=== PATIENT | male | born 1990 | race Caucasian/White ===

== ENCOUNTER 2020-11-09 15:24 | Emergency (ER) | payer OTHER, SELFPAY ==
[2020-11-09 15:42] VITALS: BP 142/76; PULSE 107; RESP 16; TEMP 37; O2SAT 99
--- NOTE | 2020-11-09 16:08 | ED.EAR ---
HPI - Ear Problem General Chief complaint: Ear Stated complaint: Left Side ear pain Source: patient and RN notes reviewed Limitations: no limitations History of Present Illness HPI Narrative: The obese patient, a non-smoker/nondrinker presents with left ear and face pain. Patient states he has 1/2-week of 2 separate pain complaints: He complains of left gingival jaw pain that is mild, worse with palpation better at rest. He also has some palpable, preauricular ear pain . No fever, ear discharge, hoarseness, trismus, tinnitus Related Data Home Medications Medication Instructions Recorded Confirmed diazepam 1 mg PO BID 11/09/20 11/09/20 Allergies Allergy/AdvReac Type Severity Reaction Status Date / Time No Known Allergies Allergy Unknown Verified 11/09/20 15:38 Review of Systems Review of Systems: Narrative: General/Constitutional: No weight loss,fever Eyes: N0: Redness,discharge Ears/Nose/Throat: No: Epistaxis,ear discharge Respiratory: Denies: Hemoptysis Gastrointestinal: No Vomiting, Bleeding-rectal Skin: No Lumps, eruption Neurologic: No Focal Weakness,Sz Hematologic: Denies: Petechiae/Purpura Psychiatric: No: Suicida ideationl All Other Systems: Reviewed and Negative PMFSH Family History Family History (Updated 08/28/18 @ 14:32 by DOCTOR UNKNOWN) Mother Family history of chronic obstructive pulmonary disease Social History Social History Gender identity (if verbalized by the patient): Male Comments At time of signature, agree with nursing past medical, surgical, social and family history. There is no relevant family history pertinent to the presenting complaint Exam Narrative: Exam Narrative: General Appearance: Well appearing, Well nourished EYE: PERRLA, Conjunctiva clear Ears: Auditory canal normal & TM obscured by wax Nose: No rhinorrhea, Mucousal erythema Mouth/Throat: MM moist, Uvula midline, no pharyngeal erythema Neck: Supple, No adenopathy Respiratory: No respiratory distress, Breath sounds equal, Clear to auscultation Cardiovascular: RRR, No JVD Musculoskeletal: Non tender, Normal strength Skin: Warm, Dry Neurological: A&O x3, CN II-XII intact Psychiatric: Normal mood, Normal affect Course Vital Signs Vital signs: Vital Signs Temperature 98.6 F 11/09/20 15:42 Pulse Rate 107 H 11/09/20 15:42 Respiratory Rate 16 11/09/20 15:42 Blood Pressure 142/76 H 11/09/20 15:42 Pulse Oximetry 99 11/09/20 15:42 Temperature 98.6 F 11/09/20 15:42 Pulse Rate 107 H 11/09/20 15:42 Respiratory Rate 16 11/09/20 15:42 Blood Pressure 142/76 H 11/09/20 15:42 Pulse Oximetry 99 11/09/20 15:42 Medical Decision Making Vital Signs Vital Signs: Vital Signs Temperature 98.6 F 11/09/20 15:42 Pulse Rate 107 H 11/09/20 15:42 Respiratory Rate 16 11/09/20 15:42 Blood Pressure 142/76 H 11/09/20 15:42 Pulse Oximetry 99 11/09/20 15:42 Temperature 98.6 F 11/09/20 15:42 Pulse Rate 107 H 11/09/20 15:42 Respiratory Rate 16 11/09/20 15:42 Blood Pressure 142/76 H 11/09/20 15:42 Pulse Oximetry 99 11/09/20 15:42 Discharge Plan Discharge Clinical Impression: Tooth ache TMJ arthralgia Qualifiers: Laterality: left Qualified Code(s): M26.622 - Arthralgia of left temporomandibular joint Patient Disposition: Home, Self-Care Condition: Stable Instructions: Antibiotic Form, Temporomandibular Disorder (ED), Toothache (ED) Additional Instructions: You may also use OTC preparations for wax buildup Prescriptions: New amoxicillin 875 mg tablet 875 mg PO Q12H Qty: 20 RF: 0 tramadol 50 mg tablet 50 mg PO Q6H PRN (Reason: pain) Qty: 15 RF: 1 No Action diazepam 5 mg tablet 1 mg PO BID RF: 0 Follow-up/Referrals: Jonah Mccauley MD [Primary Care Provider] -
== END 2020-11-09 16:16 | disposition home or self-care (01) ==
LOC: EXPCOLL 15:27
PROVIDERS: Emergency Provider Emergency Medicine; PCP Emergency Medicine
DX: K08.89 Other specified disorders of teeth and supporting structures (principal); M26.622 Arthralgia of left temporomandibular joint; F41.9 Anxiety disorder, unspecified
CPT/HCPCS: 99213; G0463

== ENCOUNTER 2021-03-16 18:40 | Emergency (ER) | payer OTHER, SELFPAY ==
[2021-03-16 18:49] VITALS: BP 128/85; PULSE 107; RESP 20; TEMP 36.5; O2SAT 97
--- NOTE | 2021-03-16 19:09 | ED.EXTPRO ---
HPI - Extremity Problem General Chief complaint: Extremity Problem,Nontraumatic Stated complaint: Calf Pain Time Seen by Provider: 03/16/21 18:59 Source: patient and RN notes reviewed Mode of arrival: ambulatory Limitations: no limitations History of Present Illness HPI Narrative: 30-year-old male presents with concern for left calf spasming, charley horse feeling. Reports symptoms started intermittently 2-1/2 weeks ago. He denies injury or trauma. He denies redness, swelling, warmth. He denies distal pain, loss of sensation, strength or range of motion. He reports pain radiates down towards the ankle and the thigh. He denies intervention. He denies shortness of breath or palpitations. MD Complaint: extremity pain Related Data Home Medications Medication Instructions Recorded Confirmed sucralfate 1 g PO DIRECTED 03/16/21 03/16/21 Allergies Allergy/AdvReac Type Severity Reaction Status Date / Time No Known Allergies Allergy Unknown Verified 03/16/21 18:42 Review of Systems Review of Systems: CONSTITUTIONAL: Denies malaise, chills, sweats, or fever. CARDIOVASCULAR: Denies chest pain, palpitations, or edema. RESPIRATORY: Denies cough or dyspnea. SKIN: Denies lacerations, abrasions, redness, warmth, swelling MUSCULOSKELETAL: Reports left medial calf pain that radiates towards ankle and up towards the thigh, worse with palpitation NEUROLOGIC: Denies numbness, weakness All systems reviewed & are unremarkable except as noted in HPI and below PMFSH Family History Family History (Updated 08/28/18 @ 14:32 by DOCTOR UNKNOWN) Mother Family history of chronic obstructive pulmonary disease Social History Social History Gender identity (if verbalized by the patient): Male Comments At time of signature, agree with nursing past medical, surgical, social and family history. There is no relevant family history pertinent to the presenting complaint Exam Narrative: GENERAL: Well-appearing, well-nourished, and in no acute distress. HEAD: Normocephalic, atraumatic. EYES: PERRLA, conjunctivae clear NECK: Supple. CHEST: Speaks in full sentences. No respiratory distress. HEART: Regular rate and rhythm. Normal and equal peripheral pulses. EXTREMITIES: Left lower leg has normal strength and sensation, normal range of motion. No edema erythema, or ecchymosis. 5/5 strength with knee and ankle flexion and extension. Normal sensation with sensitivity to light touch and pain. No point tenderness. No open wounds, no skin tenting, no devitalized tissue or atrophy, no trophic changes, no obvious deformity, alignment normal, nearby joints and structures intact. Distal pulses palpable and equal bilaterally, skin warm, dry, pink. Capillary refill less than 3 seconds. SKIN: Warm, dry, no rash. NEURO: Alert and oriented x3. PSYCH: Normal mood and affect Course Course Emergency Course: Patient is aware of diagnosis, understands and agrees to treatment plan. Anticipatory guidance given. Patient agrees to follow-up as directed and is aware of reasons to seek care at the emergency department. Portions of this record may have been created with voice recognition software Vital Signs Vital signs: Vital Signs Temperature 97.7 F 03/16/21 18:49 Pulse Rate 107 H 03/16/21 18:49 Respiratory Rate 20 03/16/21 18:49 Blood Pressure 128/85 03/16/21 18:49 Pulse Oximetry 97 03/16/21 18:49 Temperature 97.7 F 03/16/21 18:49 Pulse Rate 107 H 03/16/21 18:49 Respiratory Rate 20 03/16/21 18:49 Blood Pressure 128/85 03/16/21 18:49 Pulse Oximetry 97 03/16/21 18:49 Reviewed. MDM - Extremity (Nontraumatic) MDM Narrative Medical decision making narrative: Patients pain is consistent with musculoskeletal etiology. No signs of neurological or vascular compromise on exam. Compartments and tissues are soft without signs of compartment syndrome. Pain is felt appropriate for further evaluation on an outpatient basis. Ruth
== END 2021-03-16 19:14 | disposition home or self-care (01) ==
PROVIDERS: Emergency Provider Nurse Practitioner; PCP Emergency Medicine
DX: M62.838 Other muscle spasm (principal); I10 Essential (primary) hypertension; K21.9 Gastro-esophageal reflux disease without esophagitis; H81.09 Meniere's disease, unspecified ear
CPT/HCPCS: 99213; G0463

== ENCOUNTER 2021-03-29 21:13 | Emergency (ER) | payer OTHER, SELFPAY ==
--- NOTE | 2021-03-29 21:31 | PC.NURSE ---
pt called into triage bay, no response. will try again in a few minutes.
--- NOTE | 2021-03-29 22:04 | PC.NURSE ---
called pt into triage bay, no response.
== END 2021-03-29 22:04 | disposition left against medical advice (07) ==
LOC: ANHED 22:14
PROVIDERS: PCP Emergency Medicine
DX: Z53.21 Procedure and treatment not carried out due to patient leaving prior to being seen by health care provider (principal)
CPT/HCPCS: 99199

== ENCOUNTER 2021-03-31 16:13 | Emergency (ER) | payer OTHER, SELFPAY ==
--- NOTE | ~2021-03-31 | XR_ITS ---
EXAMINATION: XR chest 2V DATE: 03/31/2021 17:18 INDICATION: Mucous in chest. Post COVID-19 pneumonia. TECHNIQUE: Frontal and lateral views of the chest were obtained. COMPARISON: CT abdomen and pelvis 11/26/2013 FINDINGS: The chest demonstrates clear lungs without pneumonia, pleural effusion, or pneumothorax. Th e heart size is normal. IMPRESSION: 1. No acute cardiopulmonary disease. Reviewed, dictated and finalized at location A.
[2021-03-31 16:24] VITALS: BP 136/83; PULSE 114; RESP 16; TEMP 36.3; O2SAT 100
--- NOTE | 2021-03-31 17:35 | ED.URI ---
HPI - URI/Sore Throat General Chief Complaint: Upper Respiratory Infection Stated Complaint: Shortness of Breath Time Seen by Provider: 03/31/21 17:20 Source: patient Mode of arrival: ambulatory Limitations: no limitations History of Present Illness HPI Narrative: Mike Saravia is a 30 yo male who was seen here on the , went for Covid testing on the and was found to be positive. He has been in quarantine since then but called his doctor today complaining of feeling like he still has glass in his throat and difficulty breathing. He has been intermittently diaphoretic he is afebrile and so his doctor sent him here for a Z-Ben Related Data Allergies Allergy/AdvReac Type Severity Reaction Status Date / Time No Known Allergies Allergy Unknown Verified 03/16/21 18:42 Review of Systems Review of Systems: CONSTITUTIONAL: Denies fever, chills, sweats. Has intermittent diaphoresis EYES: Denies visual changes, redness, discharge. ENT: Denies rhinorrhea, has congestion, has sore throat, otalgia. CARDIOVASCULAR: Denies chest pain, palpitations, edema. RESPIRATORY: Some dyspnea, wheezing, cough GASTROINTESTINAL: Denies abdominal pain, nausea, vomiting, diarrhea. GENITOURINARY: Denies dysuria, hematuria, abnormal discharge SKIN: Denies rash or itching. NEUROLOGIC: Denies numbness, or focal weakness. PSYCHIATRIC: Denies anxiety or depression. PMFSH Past Medical History Medical History COVID Family History Family History Mother Family history of chronic obstructive pulmonary disease Social History Social History (Updated 03/31/21 @ 17:45 by Alma Huber CNP) Smoking status: Never smoker Alcohol intake: current Gender identity (if verbalized by the patient): Male Comments At time of signature, I agree with nursing past medical, surgical, social and family history. There is no relevant family history pertinent to the presenting complaint. Exam Narrative: GENERAL: This is a well-nourished, well-developed patient, in mild distress. HEAD: normocephalic, atraumatic. EYES: Sclera clear/white. Vision is grossly intact. EARS: External ears normal, auditory canals clear and without drainage, TMs normal without perforation. Hearing grossly intact. NOSE: External nose normal without nasal discharge, nares without redness, no rhinorrhea. THROAT: Mucous membranes moist, posterior pharynx erythema NECK: Neck supple, mild-tender CARDIOVASCULAR: Tachycardic rate and rhythm without murmurs, gallops, or rubs. RESPIRATORY: Clear to auscultation. Breath sounds equal bilaterally. No wheezes, rales, or rhonchi. GASTROINTESTINAL: Abdomen soft, non-tender, SKIN: warm, intact with no suspicious lesions or rash, good texture and turgor. NEURO: awake, alert, and oriented to person, place and time. There were no obvious focal neurologic abnormalities. Steady gait EXTREMITIES: Normal range of motion. BACK: Nontender without deformity Course Course Emergency Course: Patient is here with diaphoresis and reported short of breath. Had Covid and has been quarantine but is now having some difficulty with breathing and so we will start on prednisone and Zithromax Chest x-ray is negative for cardiopulmonary disease Vital Signs Vital signs: Vital Signs Temperature 97.3 F L 03/31/21 16:24 Pulse Rate 114 H 03/31/21 16:24 Respiratory Rate 16 03/31/21 16:24 Blood Pressure 136/83 03/31/21 16:24 Pulse Oximetry 100 03/31/21 16:24 Temperature 97.3 F L 03/31/21 16:24 Pulse Rate 114 H 03/31/21 16:24 Respiratory Rate 16 03/31/21 16:24 Blood Pressure 136/83 03/31/21 16:24 Pulse Oximetry 100 03/31/21 16:24 MDM - URI/Sore Throat Differential Diagnosis Differential diagnosis: Likely upper respiratory infection, otitis media, sinusitis and pharyngitis Critical Care Time Critical Care Time Critical
== END 2021-03-31 17:53 | disposition home or self-care (01) ==
PROVIDERS: Emergency Provider Nurse Practitioner; PCP Emergency Medicine
DX: U07.1 COVID-19 (principal); R06.00 Dyspnea, unspecified
CPT/HCPCS: 71046; 99213; G0463

== ENCOUNTER 2021-08-02 08:08 | Emergency (ER) | payer OTHER, SELFPAY ==
[2021-08-02 08:15] VITALS: BP 123/93; PULSE 100; RESP 16; TEMP 36.9; O2SAT 99
--- NOTE | 2021-08-02 08:58 | ED.SKABFB ---
HPI - Skin/Abscess/Foreign Bdy General Chief complaint: Skin/Abscess/Foreign Body Stated complaint: rash Time Seen by Provider: 08/02/21 08:49 Source: patient and RN notes reviewed Mode of arrival: ambulatory Limitations: no limitations History of Present Illness HPI narrative: Patient presents today with a 1 week history of rash or insect bites to his bilateral feet, lower legs, and left shoulder. He is unsure of the cause. No new detergents, soaps, plant or animal exposures, medications, foods. He has not been outside much recently. He has been using hydrocortisone, calamine without relief. MD complaint: rash and insect bite/sting Related Data Home Medications Medication Instructions Recorded Confirmed pantoprazole 40 mg PO DAILY 08/02/21 08/02/21 sucralfate 1 g PO DAILY 08/02/21 08/02/21 Allergies Allergy/AdvReac Type Severity Reaction Status Date / Time No Known Allergies Allergy Unknown Verified 08/02/21 08:37 Review of Systems Review of Systems: CONSTITUTIONAL: Denies body aches, fever, chills, or sweats. EYES: Denies visual changes, redness, or discharge. ENT: Denies rhinorrhea, congestion, sore throat, or otalgia. CARDIOVASCULAR: Denies chest pain, palpitations, or edema. RESPIRATORY: Denies cough or dyspnea. GASTROINTESTINAL: Denies abdominal pain, nausea, vomiting, or diarrhea. GENITOURINARY: Denies dysuria or hematuria. SKIN: Denies wounds.+ Rash/insect bite MUSCULOSKELETAL: Denies back pain, joint pain, or myalgia. NEUROLOGIC: Denies headache, numbness, tingling, or weakness. PSYCH: Denies depression or anxiety. PMFSH Past Medical History Medical History COVID Family History Family History Mother Family history of chronic obstructive pulmonary disease Social History Social History Smoking status: Never smoker Alcohol intake: current Gender identity (if verbalized by the patient): Male Comments At time of signature, I have reviewed and agree with nursing past medical, surgical, social and family history unless otherwise noted. Please see nursing chart for further information. There is no relevant family history pertinent to the presenting complaint Exam Narrative: GENERAL: Well-appearing, well-nourished, and in no acute distress. HEAD: Normocephalic, atraumatic. EYES: EOMI. No redness or drainage. Conjunctivae normal. ENT: Mucous membranes pink and moist. NECK: Normal AROM. CHEST: No respiratory distress. EXTREMITIES: Normal range of motion. No edema. SKIN: Warm, dry. Capillary refill normal. Normal skin turgor. Multiple erythematous papules to the posterior left shoulder. Faintly pink papules to the posterior right lower leg and bilateral feet, all consistent with insect bites. NEURO: No focal deficits. Alert and oriented x3. Gait steady. PSYCH: Normal affect. No signs of depression or anxiety. Course Vital Signs Vital signs: Vital Signs Temperature 98.4 F 08/02/21 08:15 Pulse Rate 100 08/02/21 08:15 Respiratory Rate 16 08/02/21 08:15 Blood Pressure 123/93 H 08/02/21 08:15 Pulse Oximetry 99 08/02/21 08:15 Temperature 98.4 F 08/02/21 08:15 Pulse Rate 100 08/02/21 08:15 Respiratory Rate 16 08/02/21 08:15 Blood Pressure 123/93 H 08/02/21 08:15 Pulse Oximetry 99 08/02/21 08:15 Reviewed. Pt has been instructed to follow up with his PCP regarding his elevated blood pressure today. MDM - Skin/Abscess/Foreign Bdy Differential Diagnosis Differential diagnosis: Likely urticaria, insect bites, contact dermatitis and other (Scabies, bedbugs, mites) Critical Care Time Critical Care Time Critical Care Time: No Discharge Plan Discharge Clinical Impression: Insect bites Qualifiers: Encounter type: initial encounter Site of insect bite: unspecified site
== END 2021-08-02 09:07 | disposition home or self-care (01) ==
PROVIDERS: Emergency Provider Nurse Practitioner; PCP Emergency Medicine
DX: S40.262A Insect bite (nonvenomous) of left shoulder, initial encounter (principal); S80.861A Insect bite (nonvenomous), right lower leg, initial encounter; S90.862A Insect bite (nonvenomous), left foot, initial encounter; S90.861A Insect bite (nonvenomous), right foot, initial encounter; W57.XXXA Bitten or stung by nonvenomous insect and other nonvenomous arthropods, initial encounter; Z86.16 Personal history of COVID-19
CPT/HCPCS: 99213; G0463

== ENCOUNTER 2022-01-02 21:28 | Emergency (ER) | payer OTHER, SELFPAY ==
[2022-01-02 21:30] VITALS: BP 132/95; PULSE 112; RESP 18; TEMP 36.8; O2SAT 99
[2022-01-02 21:51] VITALS: BP 102/88; PULSE 122; RESP 22; O2SAT 99
[2022-01-02] MEDS: diphenhydrAMINE HCl INJ 50 MG/ML VIAL 25 MG IV PUSH (23:46)
[2022-01-02] MEDS: KETOROLAC 30 MG/ML VIAL (*BKC) IV PUSH (23:47)
[2022-01-02] MEDS: METOCLOPRAMIDE HCL INJ 10 MG/2 ML VIAL IV PUSH (23:47)
[2022-01-02] MEDS: SODIUM CHLORIDE 0.9% IV 1,000 ML 999 ML IV CONT (23:53)
--- NOTE | 2022-01-03 00:26 | ED.GENADULT ---
HPI - General Adult General Chief complaint: Eye Problems Stated complaint: light sensitivity with headache Time Seen by Provider: 01/02/22 22:49 History of Present Illness HPI narrative: Patient is a 31-year-old male who presents ER with light sensitivity. Ongoing over the last month. Reports he was seen by an post graduate intern who told him he may have uveitis. They were going to prescribe him eyedrops but then decided that he should go to the [facility] to be seen by an interior design teacher. Patient did not take this recommendation. Symptoms initially began after hitting his head on a cabinet while he was going from a bending position to a standing position. Reports she developed some kaleidoscope changes in the periphery of his vision in both eyes 20 minutes after that injury. He has not had head imaging. He has not seen his primary care doctor about this. Patient reports he has history of agoraphobia and want to avoid going to [facility]. Patient does endorse history of migraine headaches this is different. Related Data Home Medications Medication Instructions Recorded Confirmed pantoprazole 40 mg tablet,delayed 40 mg PO DAILY 08/02/21 08/02/21 release sucralfate 1 gram tablet 1 g PO DAILY 08/02/21 08/02/21 Allergies Allergy/AdvReac Type Severity Reaction Status Date / Time No Known Allergies Allergy Unknown Verified 08/02/21 08:37 Review of Systems Review of Systems: All systems reviewed & are unremarkable except as noted in HPI and below Constitutional: Constitutional: Denies fatigue, Denies fever(s) and Denies weakness Eyes: Eyes: Reports change in vision and Reports photophobia ENT: Denies nasal congestion and Denies sore throat Cardiovascular: Cardiovascular: Denies chest pain and Denies radiating jaw, neck or arm pain Respiratory: Respiratory: Denies chest congestion, Denies cough and Denies dyspnea Gastrointestinal: Gastrointestinal: Reports nausea and Denies vomiting Neurologic: Reports headache(s), Denies focal weakness, Denies numbness and Denies weakness PMF Past Medical History Medical History (Updated 01/03/22 @ 00:30 by Larry Redmond MD) Agoraphobia COVID Headache, migraine Family History Family History Mother Family history of chronic obstructive pulmonary disease Social History Social History Smoking status: Never smoker Alcohol intake: current Gender identity (if verbalized by the patient): Male Exam Narrative: GENERAL: Uncomfortable appearing wearing sunglasses, well-nourished, and in no acute distress. HEAD: Normocephalic, atraumatic. EYES: PERRLA and EOMI. sensitive to light. ENT: Mucous membranes moist. CHEST: Clear to auscultation. No respiratory distress. HEART: Regular rate and rhythm. Normal peripheral pulses. EXTREMITIES: Normal range of motion. No edema. NEURO: Alert and oriented x3. PSYCH: Normal mood and affect. Course Course Emergency Course: Patient reports Reglan/Benadryl/Toradol significantly improved pain and he no longer has headache and he is not having kaleidoscope type changes to his vision. He is declining CT scan as he reports he got a phone call from family member with a family emergency and needs to leave. Vital Signs Vital signs: Vital Signs Temperature 98.2 F 01/02/22 21:30 Pulse Rate 112 H 01/02/22 21:30 Respiratory Rate 18 01/02/22 21:30 Blood Pressure 132/95 H 01/02/22 21:30 Pulse Oximetry 99 01/02/22 21:30 Oxygen Delivery Room Air 01/02/22 21:30 Temperature 98.2 F 01/02/22 21:30 Pulse Rate 122 H 01/02/22 21:51 Respiratory Rate 22 H 01/02/22 21:51 Blood Pressure 102/88 01/02/22 21:51 Pulse Oximetry 99 01/02/22 21:51 Oxygen Delivery Room Air 01/02/22 21:51 Medical Decision Making Vital Signs Vital Signs: Vital Signs Temperature 98.2 F 01/02/22 21:30 Puls
[2022-01-03 00:41] VITALS: BP 136/87; PULSE 126; RESP 22; O2SAT 100
== END 2022-01-03 00:51 | disposition home or self-care (01) ==
PROVIDERS: Emergency Provider Emergency Medicine; PCP Emergency Medicine
DX: G43.909 Migraine, unspecified, not intractable, without status migrainosus (principal); F07.81 Postconcussional syndrome
CPT/HCPCS: 96361; 96374; 96375; 99284; J1200; J1885; J2765; J7030